=== PATIENT | female | born 1995 | race Caucasian/White ===

== ENCOUNTER 2023-06-24 12:04 | Observation (INO) | payer OTHER ==
[2023-06-24] MEDS ORDERED: PREN-96 PO (12:49)
== END 2023-06-24 13:20 | disposition home or self-care (01) ==
LOC: UNDOADMOB 12:04 → LDRP 12:04
PROVIDERS: ADMIT Obstetrics & Gynecology; ATTEND Obstetrics & Gynecology
DX: O26.893 Other specified pregnancy related conditions, third trimester (principal); R10.2 Pelvic and perineal pain; R51.9 Headache, unspecified; Z3A.34 34 weeks gestation of pregnancy
CPT/HCPCS: 59025; 81002; 94760; G0378